=== PATIENT | female | born 1950 | race African-American/Black ===

== ENCOUNTER 2019-06-12 21:58 | Observation (INO) ==
[2019-06-12 23:46] LABS: Basophils % 0.4 % (0.0-0.8); Eosinophils # 0.1 10*3/uL (0.0-0.87); Hematocrit 37.7 VOL% (35.7-47.0); Hemoglobin 12.2 GM/DL (12.0-16.0); Immature Granulocytes % 0.2 %; Immature Granulocytes Absolute 0.01 #; Lymphocytes # 2.6 10*3/uL (1.4-4.0); Lymphocytes % 47.6 % (21.3-54.2); Mean Corpuscular HGB Conc 32.4 GM/DL (32-36); Mean Corpuscular Volume 90.4 FL (87-102); Monocytes % 10.8 % (1.7-12.7); Platelet Count 181 T/CUMM (130-400); Red Blood Count 4.17 MC/CUMM (3.8-5.5); Red Cell Distribution Width 13.9 % (9.3-17.3); White Blood Count 5.6 T/CUMM (4-12)
[2019-06-12 23:54] LABS: INR 0.9; PT Patient Result 10.2 SECS (9.6-12.2)
[2019-06-13 00:02] LABS: Calcium 8.8 MG/DL (8.5-10.1); Osmolality,Calculated 284.8 MOS/KG (273-304)
[2019-06-13 00:30] LABS: Apearance,Urine CLEAR (Clear); Bacteria,Urine Occasional /HPF (Few); Bilirubin,Urine Negative (Negative); Blood, Urine Negative (Negative); Glucose,Urine (UA) Negative (Negative); Ketones,Urine Negative (Negative); Mucus,Urine Occasional /LPF (Occasional); Nitrite,Urine Negative (Negative); Protein,Urine Negative; RBC,Urine <1 /HPF (0-4); Squamous Epithelial Cell,Urine Occasional /HPF (0-10); Urine Color Straw (Yellow); Urine Specific Gravity 1.008 (1.001-1.035); Urine Urobilinogen < 2.0 EU/DL (0.2-1.0); WBC,Urine <1 /HPF (0-6)
[2019-06-13] MEDS ORDERED: LABETALOL 20 MG/4 ML SYRINGE IV PRN (02:06)
[2019-06-13] MEDS: ENOXAPARIN 40 MG/0.4 ML SYRINGE SUBCUT SCH (04:09)
[2019-06-13 06:50] LABS: Risk Ratio 3.21; VLDL CHOLESTEROL 28.8 MG/DL
[2019-06-13] MEDS: ASPIRIN EC 81 MG TABLET PO SCH (08:48)
[2019-06-13] MEDS ORDERED: ACETAMINOPHEN 325 MG TABLET PO PRN (11:02)
[2019-06-13] MEDS: CHOLECALCIFEROL 1,000 UNIT TABLET PO SCH (15:34)
[2019-06-13] MEDS ORDERED: ERGOCALCIFEROL 50,000 UNIT CAPSULE PO SCH (18:00)
[2019-06-14] MEDS: ENOXAPARIN 40 MG/0.4 ML SYRINGE SUBCUT SCH (03:31)
[2019-06-14 08:28] LABS: Basophils % 0.6 % (0.0-0.8); Eosinophils # 0.1 10*3/uL (0.0-0.87); Eosinophils % 2.7 % (0.00-10.9); Immature Granulocytes % 0.2 %; Immature Granulocytes Absolute 0.01 #; Lymphocytes # 2.1 10*3/uL (1.4-4.0); Lymphocytes % 42.9 % (21.3-54.2); Mean Corpuscular HGB Conc 32.6 GM/DL (32-36); Mean Corpuscular Volume 90.3 FL (87-102); Mean Platelet Volume 11.8 FL (9.6-12.0); Monocytes % 9.8 % (1.7-12.7); Neutrophils % 43.8 % (38.7-73.9); Platelet Count 193 T/CUMM (130-400); Red Blood Count 4.76 MC/CUMM (3.8-5.5); Red Cell Distribution Width 13.7 % (9.3-17.3); White Blood Count 4.8 T/CUMM (4-12)
[2019-06-14] MEDS: CHOLECALCIFEROL 1,000 UNIT TABLET PO SCH (08:34)
[2019-06-14] MEDS: ASPIRIN EC 81 MG TABLET PO SCH (08:34)
[2019-06-14 08:45] LABS: Calcium 9.3 MG/DL (8.5-10.1)
[2019-06-14] MEDS ORDERED: SODIUM CHLORIDE 0.9% 500 ML IV STA (11:30)
[2019-06-14 15:48] VITALS: BP 118/70
== END 2019-06-14 17:00 | disposition home or self-care (01) ==
LOC: N.ED 21:58 → N.EDINP 21:58 → SUPCPDRO 06-13 02:06 → N.4E 06-13 02:24
PROVIDERS: ADMIT Hospitalist; ATTEND Hospitalist